=== PATIENT | female | born 1995 | race African-American/Black ===

== ENCOUNTER 2020-06-25 17:42 | Emergency (ER) | payer SELFPAY | END 2020-06-25 22:16 | disposition left against medical advice (07) | PROVIDERS: Emergency Provider Emergency Medicine Emergency Medical Services | DX: Z20.828 Contact with and (suspected) exposure to other viral communicable diseases (principal) ==

== ENCOUNTER 2020-06-27 08:52 | Outpatient (REF) | payer OTHER, SELFPAY | END 2020-06-27 08:53 | disposition home or self-care (01) | LOC: HO.LAB 08:52 | PROVIDERS: Visit Provider Internal Medicine | DX: Z20.828 Contact with and (suspected) exposure to other viral communicable diseases (principal) | CPT/HCPCS: C9803; U0003 ==